=== PATIENT | male | born 1990 | race Caucasian/White ===

== ENCOUNTER 2023-04-29 11:55 | Emergency (ER) | payer MEDICAID ==
[~2023-04-29] VITALS: Ht 170.2 cm; Wt 99.8 kg
[2023-04-29 11:55] VITALS: BP_SYST 141; PULSE 89; RESP 18; TEMP 98.7; O2SAT 100
[2023-04-29] MEDS ORDERED: NAPR-688 PO (13:48)
[2023-04-29 14:29] VITALS: BP_SYST 141; PULSE 89; RESP 18; TEMP 98.7; O2SAT 100
== END 2023-04-29 14:28 | disposition home or self-care (01) ==
LOC: SED 11:55
DX: R10.11 Right upper quadrant pain (principal); R35.0 Frequency of micturition; R63.1 Polydipsia; Z79.899 Other long term (current) drug therapy
CPT/HCPCS: 76705; 82948; 99284